=== PATIENT | female | born 1960 | race Caucasian/White ===

== ENCOUNTER 2017-05-27 12:19 | Inpatient (IN) | payer SELFPAY ==
[2017-05-27 13:03] LABS: ADD MAN DIFF? NO
[2017-05-27 13:09] LABS: BASO # 0.1 x10^3/uL (0.0-0.2); BASO % 0 % (0-3); EOS # 0.2 x10^3/uL (0.0-0.7); EOS % 1 % (0-3); HEMOGLOBIN 15.7 g/dL (12.0-15.5); LYMPH # 2.3 x10^3/uL (1.0-4.8); LYMPH % 16 % (24-48); MEAN CORPUSCULAR HEMOGLOBIN 29 pg (25-35); MEAN CORPUSCULAR HGB CONC 33 g/dL (31-37); MEAN CORPUSCULAR VOLUME 89 fL (79-100); MONO # 0.7 x10^3/uL (0.0-1.1); MONO % 5 % (0-9); NEUT # 11.1 x10^3uL (1.8-7.7); NEUT % 77 % (31-73); PLATELET COUNT 331 x10^3/uL (140-400); RED BLOOD COUNT 5.37 x10^6/uL (3.50-5.40); RED CELL DISTRIBUTION WIDTH 13.8 % (11.5-14.5); WHITE BLOOD COUNT 14.4 x10^3/uL (4.0-11.0)
[2017-05-27] MEDS: ONDANSETRON PF 4 MG/2 ML VIAL. IV ×2 (13:14→19:43)
[2017-05-27] MEDS: IV NORMAL SALINE 1000ML BAG 1,000 ML IV (13:14)
[2017-05-27] MEDS: MORPHINE SULFATE 4 MG/ML DISP.SYRIN. IV/SQ ×2 (13:15→16:00)
[2017-05-27 13:25] LABS: BILIRUBIN,URINE NEGATIVE (NEG); CLARITY,URINE CLOUDY; COLOR,URINE YELLOW; GLUCOSE,URINE NEGATIVE (NEG); NITRITE,URINE NEGATIVE (NEG); PH,URINE 5.5; PROTEIN,URINE NEGATIVE (NEG-TRACE); RBC,URINE 0 /HPF (0-2); UROBILINOGEN,URINE 0.2 mg/dL (0.2 mg/dL)
[2017-05-27 13:26] LABS: TROPONINI < 0.017 ng/mL (0.000-0.055)
[2017-05-27 13:26] LABS: BACTERIA,URINE FEW /HPF (0-FEW); SQUAMOUS EPITHELIAL CELL,UR MOD /LPF; WBC,URINE OCC /HPF (0-4)
[2017-05-27 13:27] LABS: BARBITURATES NEG (NEG); BENZODIAZEPINES NEG (NEG); CANNABINOIDS NEG (NEG); COCAINE NEG (NEG); METHADONE NEG (NEG); OPIATES NEG (NEG); PHENCYCLIDINE NEG (NEG)
[2017-05-27 13:28] LABS: AMPHETAMINE/METHAMPHETAMINE NEG (NEG); ETHANOL, URINE NEG (NEG)
[2017-05-27 13:31] LABS: THYROID STIM HORMONE (TSH) 2.927 uIU/mL (0.358-3.74)
[2017-05-27 13:34] LABS: ANION GAP 8 (6-14); BLOOD UREA NITROGEN 16 mg/dL (7-20); CALCIUM 9.3 mg/dL (8.5-10.1); CARBON DIOXIDE 30 mmol/L (21-32); CHLORIDE 103 mmol/L (98-107); CREATININE 0.8 mg/dL (0.6-1.0); GFR 73.4; GLUCOSE 139 mg/dL (70-99); POTASSIUM 4.1 mmol/L (3.5-5.1); SODIUM 141 mmol/L (136-145)
[2017-05-27 13:40] LABS: ALBUMIN 3.6 g/dL (3.4-5.0); ALK PHOS 109 U/L (46-116); ALT (SGPT) 48 U/L (14-59); AST (SGOT) 34 U/L (15-37); DIRECT BILIRUBIN 0.1 mg/dL (0.0-0.2); LIPASE 336 U/L (73-393); MAGNESIUM 2.3 mg/dL (1.8-2.4); PROTHROMBIN TIME PATIENT 12.1 SEC (11.7-14.0); TOTAL BILIRUBIN 0.4 mg/dL (0.2-1.0)
[2017-05-27 14:01] LABS: NT-PRO BNP 22 pg/mL (0-124)
[2017-05-27 14:01] LABS: CKMB INDEX 0.9 % (0-4); CKMB MASS 0.7 ng/mL (0.0-3.6); CREATINE KINASE 80 U/L (26-192)
[2017-05-27] MEDS ORDERED: CONTRAST GIVEN MC (14:30)
[2017-05-27] MEDS: IOHEXOL 300 MG/ML 100ML VIAL. IV (14:31)
[2017-05-27] MEDS ORDERED: ONDANSETRON PF 4 MG/2 ML VIAL. IV (15:15)
[2017-05-27] MEDS: IV 1/2 NORMAL SALINE 1,000 ML IV (16:45)
[2017-05-27] MEDS: IV DEXTROSE 5 %-0.45 % NACL 1,000 ML IV (17:44)
[2017-05-27 19:49] LABS: TROPONINI < 0.017 ng/mL (0.000-0.055)
[2017-05-27] MEDS: MORPHINE SULFATE 4 MG/ML DISP.SYRIN. IV ×2 (19:49→23:49)
[2017-05-27 21:44] LABS: TROPONINI < 0.017 ng/mL (0.000-0.055)
[2017-05-28 06:42] LABS: ADD MAN DIFF? NO
[2017-05-28 06:46] LABS: BASO # 0.1 x10^3/uL (0.0-0.2); BASO % 1 % (0-3); EOS # 0.3 x10^3/uL (0.0-0.7); EOS % 3 % (0-3); HEMATOCRIT 42.8 % (36.0-47.0); HEMOGLOBIN 13.5 g/dL (12.0-15.5); LYMPH % 27 % (24-48); MEAN CORPUSCULAR HEMOGLOBIN 29 pg (25-35); MEAN CORPUSCULAR HGB CONC 32 g/dL (31-37); MEAN CORPUSCULAR VOLUME 92 fL (79-100); MONO # 0.8 x10^3/uL (0.0-1.1); MONO % 7 % (0-9); NEUT % 63 % (31-73); PLATELET COUNT 267 x10^3/uL (140-400); RED BLOOD COUNT 4.67 x10^6/uL (3.50-5.40); RED CELL DISTRIBUTION WIDTH 14.5 % (11.5-14.5); WHITE BLOOD COUNT 11.2 x10^3/uL (4.0-11.0)
[2017-05-28 07:23] LABS: ALBUMIN 2.8 g/dL (3.4-5.0); ALBUMIN/GLOBULIN RATIO 0.7 (1.0-1.7); ALK PHOS 81 U/L (46-116); ALT (SGPT) 41 U/L (14-59); ANION GAP 4 (6-14); AST (SGOT) 36 U/L (15-37); BLOOD UREA NITROGEN 11 mg/dL (7-20); BUN/CREATININE RATIO 16 (6-20); CALCIUM 8.9 mg/dL (8.5-10.1); CARBON DIOXIDE 33 mmol/L (21-32); CHLORIDE 104 mmol/L (98-107); CREATININE 0.7 mg/dL (0.6-1.0); GFR 85.6; GLUCOSE 130 mg/dL (70-99); POTASSIUM 4.1 mmol/L (3.5-5.1); SODIUM 141 mmol/L (136-145); TOTAL BILIRUBIN 0.4 mg/dL (0.2-1.0); TOTAL PROTEIN 6.6 g/dL (6.4-8.2)
[2017-05-28] MEDS: ONDANSETRON PF 4 MG/2 ML VIAL. IV (08:54)
[2017-05-28] MEDS: MORPHINE SULFATE 4 MG/ML DISP.SYRIN. IV ×2 (08:55→15:12)
[2017-05-28] MEDS: FAMOTIDINE 20 MG/2 ML VIAL IVP (13:30)
[2017-05-28] MEDS ORDERED: hydrALAZINE 20 MG/ML VIAL. IVP (15:45)
[2017-05-28] MEDS ORDERED: ONDANSETRON PF 4 MG/2 ML VIAL. IV (15:45)
[2017-05-28] MEDS ORDERED: ACETAMINOPHEN 325 MG TABLET. PO (15:45)
[2017-05-28] MEDS: CALCIUM CARBONATE 500 MG TAB.CHEW PO ×2 (17:06→20:19)
[2017-05-28] MEDS: FAMOTIDINE 20 MG TABLET. PO (20:19)
[2017-05-28] MEDS: MORPHINE SULFATE 2 MG/ML DISP.SYRIN. IV (20:20)
[2017-05-29 04:09] LABS: ADD MAN DIFF? NO
[2017-05-29 04:16] LABS: BASO # 0.1 x10^3/uL (0.0-0.2); BASO % 1 % (0-3); EOS # 0.3 x10^3/uL (0.0-0.7); EOS % 3 % (0-3); HEMATOCRIT 42.9 % (36.0-47.0); HEMOGLOBIN 14.5 g/dL (12.0-15.5); LYMPH # 2.8 x10^3/uL (1.0-4.8); LYMPH % 28 % (24-48); MEAN CORPUSCULAR HEMOGLOBIN 30 pg (25-35); MEAN CORPUSCULAR HGB CONC 34 g/dL (31-37); MEAN CORPUSCULAR VOLUME 89 fL (79-100); MONO # 0.7 x10^3/uL (0.0-1.1); MONO % 7 % (0-9); NEUT # 6.3 x10^3uL (1.8-7.7); NEUT % 62 % (31-73); PLATELET COUNT 282 x10^3/uL (140-400); RED BLOOD COUNT 4.84 x10^6/uL (3.50-5.40); RED CELL DISTRIBUTION WIDTH 13.7 % (11.5-14.5); WHITE BLOOD COUNT 10.1 x10^3/uL (4.0-11.0)
[2017-05-29 04:31] LABS: ANION GAP 5 (6-14); BLOOD UREA NITROGEN 11 mg/dL (7-20); CALCIUM 9.5 mg/dL (8.5-10.1); CARBON DIOXIDE 33 mmol/L (21-32); CHLORIDE 100 mmol/L (98-107); CREATININE 0.8 mg/dL (0.6-1.0); GFR 73.4; GLUCOSE 133 mg/dL (70-99); POTASSIUM 3.8 mmol/L (3.5-5.1); SODIUM 138 mmol/L (136-145)
[2017-05-29] MEDS: LEVOTHYROXINE 25 MCG TABLET. PO ×2 (07:00→12:19)
[2017-05-29] MEDS: fentaNYL PF VIAL 100 MCG/2 ML VIAL IV ×4 (07:40→20:54)
[2017-05-29] MEDS: NORMAL SALINE IV (10:25)
[2017-05-29] MEDS: SINCALIDE IV (10:25)
[2017-05-29] MEDS: busPIRone 10 MG TABLET. PO (12:19)
[2017-05-29] MEDS: FAMOTIDINE 20 MG TABLET. PO ×2 (12:19→20:54)
[2017-05-29] MEDS: LISINOPRIL 20 MG TABLET PO (12:19)
[2017-05-29] MEDS: DOCUSATE SODIUM 100 MG CAPSULE. PO ×2 (12:19→20:54)
[2017-05-29] MEDS: ATORVASTATIN CALCIUM 10 MG TABLET. PO (21:00)
[2017-05-30] MEDS: fentaNYL PF VIAL 100 MCG/2 ML VIAL IV ×4 (05:40→20:58)
[2017-05-30] MEDS: LEVOTHYROXINE 25 MCG TABLET. PO (05:40)
[2017-05-30] MEDS: FAMOTIDINE 20 MG TABLET. PO ×2 (09:02→20:43)
[2017-05-30] MEDS: DOCUSATE SODIUM 100 MG CAPSULE. PO ×2 (09:02→20:43)
[2017-05-30] MEDS: busPIRone 10 MG TABLET. PO (09:02)
[2017-05-30] MEDS: LISINOPRIL 20 MG TABLET PO (09:03)
[2017-05-30] MEDS: LIDO:MAALOX:DONNATAL 1:1:1 15 ML SINGLE DOSE SWSW (18:31)
[2017-05-30] MEDS: ATORVASTATIN CALCIUM 10 MG TABLET. PO (20:43)
[2017-05-31] MEDS: LEVOTHYROXINE 25 MCG TABLET. PO (06:17)
[2017-05-31] MEDS: fentaNYL PF VIAL 100 MCG/2 ML VIAL IV (06:18)
[2017-05-31] MEDS: busPIRone 10 MG TABLET. PO (08:58)
[2017-05-31] MEDS: DOCUSATE SODIUM 100 MG CAPSULE. PO ×3 (08:59→20:33)
[2017-05-31] MEDS: FAMOTIDINE 20 MG TABLET. PO ×2 (08:59→20:33)
[2017-05-31] MEDS: LISINOPRIL 20 MG TABLET PO (09:00)
[2017-05-31] MEDS: CALCIUM CARBONATE 500 MG TAB.CHEW PO ×3 (09:00→18:14)
[2017-05-31] MEDS: oxyCODONE/APAP 5/325 1 TAB TABLET PO (12:23)
[2017-05-31] MEDS ORDERED: POLYETHYLENE GLYCOL 3350 17 GM PACKET. PO (12:30)
[2017-05-31] MEDS: POLYETHYLENE GLYCOL 3350 17 GM PACKET. PO (13:25)
[2017-05-31] MEDS: LIDO:MAALOX:DONNATAL 1:1:1 15 ML SINGLE DOSE SWSW (14:24)
[2017-05-31] MEDS: ATORVASTATIN CALCIUM 10 MG TABLET. PO (20:32)
[2017-06-01] MEDS: LEVOTHYROXINE 25 MCG TABLET. PO (06:32)
[2017-06-01] MEDS ORDERED: ceFAZolin 2GM PREMIX 2 GM/50 ML BAG IV (07:00)
[2017-06-01] MEDS: IV RINGERS,LACTATED 1000ML 1,000 ML IV ×3 (08:52→19:00)
[2017-06-01] MEDS: DOCUSATE SODIUM 100 MG CAPSULE. PO ×2 (09:00→20:49)
[2017-06-01] MEDS: LISINOPRIL 20 MG TABLET PO (09:00)
[2017-06-01] MEDS: busPIRone 10 MG TABLET. PO (09:00)
[2017-06-01] MEDS ORDERED: PROPOFOL 20 ML IV ×2 (09:54→15:00)
[2017-06-01] MEDS ORDERED: LIDOCAINE 2% PF Vial for OR 5 ML VIAL. ×2 (09:54→15:00)
[2017-06-01] MEDS ORDERED: PANTOPRAZOLE 40 MG TABLET.DR. PO (11:00)
[2017-06-01] MEDS: fentaNYL PF VIAL 100 MCG/2 ML VIAL IV ×3 (11:19→18:09)
[2017-06-01] MEDS ORDERED: ONDANSETRON PF 4 MG/2 ML VIAL. IV (11:30)
[2017-06-01] MEDS ORDERED: fentaNYL PF VIAL 100 MCG/2 ML VIAL IV (11:30)
[2017-06-01] MEDS ORDERED: LIDOCAINE 1% PF 2 ML VIAL. ID (11:30)
[2017-06-01] MEDS: BISACODYL 10 MG SUPP.RECT. PR (12:26)
[2017-06-01] MEDS ORDERED: NEOSTIGMINE METHYLSULFATE 5 MG/5 ML SYRINGE. (14:59)
[2017-06-01] MEDS ORDERED: ROCURONIUM 50 MG/5 ML VIAL. (14:59)
[2017-06-01] MEDS ORDERED: GLYCOPYRROLATE 1 MG/5 ML VIAL. (14:59)
[2017-06-01] MEDS ORDERED: MIDAZOLAM HCL/PF 2 MG/2 ML VIAL. (14:59)
[2017-06-01] MEDS ORDERED: fentaNYL PF VIAL 100 MCG/2 ML VIAL (14:59)
[2017-06-01] MEDS ORDERED: DEXAMETHASONE SOD PHOS 20 MG/5 ML VIAL. (15:00)
[2017-06-01] MEDS ORDERED: ONDANSETRON PF 4 MG/2 ML VIAL. (15:00)
[2017-06-01] MEDS ORDERED: KETOROLAC 30 MG/ML INJ FOR OR. INJ (15:00)
[2017-06-01] MEDS: IOHEXOL 300 MG/ML 100ML VIAL. (16:18)
[2017-06-01] MEDS: BUPIVAC MPF-EPI 0.5%-1:200000 30 ML VIAL. INJ (16:18)
[2017-06-01] MEDS: PANTOPRAZOLE 40 MG TABLET.DR. PO ×2 (16:30→20:49)
[2017-06-01] MEDS ORDERED: fentaNYL PF VIAL 250 MCG/5 ML VIAL (16:57)
[2017-06-01] MEDS: SURGICEL HEMOSTAT 4X8 EACH. (17:03)
[2017-06-01] MEDS: PROCHLORPERAZINE 10 MG/2 ML VIAL. IV ×2 (17:45→18:29)
[2017-06-01] MEDS: MORPHINE SULFATE 2 MG/ML DISP.SYRIN. IV ×2 (18:31→18:41)
[2017-06-01] MEDS: ATORVASTATIN CALCIUM 10 MG TABLET. PO (20:49)
[2017-06-02] MEDS: IV RINGERS,LACTATED 1000ML 1,000 ML IV (05:00)
[2017-06-02] MEDS: LEVOTHYROXINE 25 MCG TABLET. PO (05:47)
[2017-06-02] MEDS: busPIRone 10 MG TABLET. PO (09:04)
[2017-06-02] MEDS: LISINOPRIL 20 MG TABLET PO (09:04)
[2017-06-02] MEDS: DOCUSATE SODIUM 100 MG CAPSULE. PO ×2 (09:04→20:32)
[2017-06-02] MEDS: PANTOPRAZOLE 40 MG TABLET.DR. PO ×2 (09:04→20:34)
[2017-06-02] MEDS: oxyCODONE/APAP 5/325 1 TAB TABLET PO ×2 (09:09→16:53)
[2017-06-02] MEDS: ATORVASTATIN CALCIUM 10 MG TABLET. PO (20:33)
[2017-06-02] MEDS: traMADol 50 MG TABLET PO (20:33)
[2017-06-02] MEDS: MAGNESIUM HYDROXIDE 2,400 MG/30 ML ORAL.SUSP. PO (20:34)
[2017-06-03] MEDS: LEVOTHYROXINE 25 MCG TABLET. PO (06:12)
[2017-06-03] MEDS: traMADol 50 MG TABLET PO (06:14)
[2017-06-03] MEDS: LISINOPRIL 20 MG TABLET PO (08:45)
[2017-06-03] MEDS: PANTOPRAZOLE 40 MG TABLET.DR. PO (08:46)
[2017-06-03] MEDS: DOCUSATE SODIUM 100 MG CAPSULE. PO (08:46)
[2017-06-03] MEDS: busPIRone 10 MG TABLET. PO (08:46)
[2017-06-03] MEDS: oxyCODONE/APAP 5/325 1 TAB TABLET PO (10:44)
[2017-06-03] MEDS: DICYCLOMINE HCL 10 MG CAPSULE PO (10:44)
[2017-06-03] MEDS: BISACODYL 5 MG TABLET.DR. PO (11:53)
[2017-06-03] MEDS: MAGNESIUM HYDROXIDE 2,400 MG/30 ML ORAL.SUSP. PO (11:53)
[2017-06-03] MEDS: POLYETHYLENE GLYCOL 3350 17 GM PACKET. PO (11:53)
== END 2017-06-03 15:44 | disposition home or self-care (01) | DRG 418 ==
LOC: 5 NORTH 06-01 21:22 → ER 12:19 → ED HOLD 14:35 → 5 NORTH 17:29
PROC: 0DB68ZX Excision of Stomach, Via Natural or Artificial Opening Endoscopic, Diagnostic (ICD-10-PCS; 2017-06-01 09:30)
PROC: 0FT44ZZ Resection of Gallbladder, Percutaneous Endoscopic Approach (ICD-10-PCS; principal; 2017-06-01 09:58)
PROC: BF131ZZ Fluoroscopy of Gallbladder and Bile Ducts using Low Osmolar Contrast (ICD-10-PCS; 2017-06-01 09:58)
DX: K82.9 Disease of gallbladder, unspecified (principal); K22.10 Ulcer of esophagus without bleeding; E66.01 Morbid (severe) obesity due to excess calories; K21.0 Gastro-esophageal reflux disease with esophagitis; K57.90 Diverticulosis of intestine, part unspecified, without perforation or abscess without bleeding; Z68.36 Body mass index [BMI] 36.0-36.9, adult; I10 Essential (primary) hypertension; E03.9 Hypothyroidism, unspecified; R16.1 Splenomegaly, not elsewhere classified; E78.5 Hyperlipidemia, unspecified; G89.29 Other chronic pain; K29.70 Gastritis, unspecified, without bleeding; K59.09 Other constipation; Z82.49 Family history of ischemic heart disease and other diseases of the circulatory system; Z83.71 Family history of colonic polyps; Z96.659 Presence of unspecified artificial knee joint; F32.9 Major depressive disorder, single episode, unspecified; F41.9 Anxiety disorder, unspecified
CPT/HCPCS: 36415; 74177; 74300; 76700; 78226; 80048; 80053; 80076; 80307; 81001; 82553; 83690; 83735; 83880; 84443; 84484; 85025; 85610; 87086; 88304; 88305; 88342; 93005; 96361; 96374; 96375; 96376; 99285; 99285-25; A9537; J0690; J0780; J1100; J1885; J2250; J2270; J2405; J2704; J2710; J2805; J3010; J3490; J7030; J7120; Q9967; S0028

== ENCOUNTER 2017-06-16 16:13 | Emergency (ER) | payer SELFPAY ==
[2017-06-16] MEDS: IV NORMAL SALINE 1000ML BAG 1,000 ML IV (17:25)
[2017-06-16 17:30] LABS: ADD MAN DIFF? NO
[2017-06-16 17:33] LABS: BASO # 0.1 x10^3/uL (0.0-0.2); BASO % 1 % (0-3); EOS # 0.2 x10^3/uL (0.0-0.7); EOS % 1 % (0-3); HEMOGLOBIN 14.9 g/dL (12.0-15.5); LYMPH # 2.9 x10^3/uL (1.0-4.8); LYMPH % 23 % (24-48); MEAN CORPUSCULAR HEMOGLOBIN 30 pg (25-35); MEAN CORPUSCULAR HGB CONC 33 g/dL (31-37); MEAN CORPUSCULAR VOLUME 90 fL (79-100); MONO # 0.6 x10^3/uL (0.0-1.1); MONO % 5 % (0-9); NEUT # 8.8 x10^3uL (1.8-7.7); NEUT % 70 % (31-73); PLATELET COUNT 336 x10^3/uL (140-400); RED BLOOD COUNT 5.03 x10^6/uL (3.50-5.40); RED CELL DISTRIBUTION WIDTH 14.4 % (11.5-14.5); WHITE BLOOD COUNT 12.6 x10^3/uL (4.0-11.0)
[2017-06-16 17:45] LABS: ANION GAP 11 (6-14); BLOOD UREA NITROGEN 14 mg/dL (7-20); CALCIUM 9.4 mg/dL (8.5-10.1); CARBON DIOXIDE 28 mmol/L (21-32); CHLORIDE 103 mmol/L (98-107); CREATININE 0.7 mg/dL (0.6-1.0); GFR 85.6; GLUCOSE 140 mg/dL (70-99); POTASSIUM 3.8 mmol/L (3.5-5.1); SODIUM 142 mmol/L (136-145)
[2017-06-16 17:46] LABS: NEG OBC SER NEG; POS OBC SER POS; PREG TEST PT QUAL NEGATIVE (NEG)
[2017-06-16 17:50] LABS: ALBUMIN 3.5 g/dL (3.4-5.0); ALK PHOS 99 U/L (46-116); ALT (SGPT) 38 U/L (14-59); AST (SGOT) 31 U/L (15-37); DIRECT BILIRUBIN 0.1 mg/dL (0.0-0.2); LIPASE 203 U/L (73-393); TOTAL BILIRUBIN 0.3 mg/dL (0.2-1.0)
== END 2017-06-16 18:28 | disposition home or self-care (01) ==
LOC: ER 16:13
DX: G89.18 Other acute postprocedural pain (principal); R10.9 Unspecified abdominal pain; R11.0 Nausea; E78.00 Pure hypercholesterolemia, unspecified; E03.9 Hypothyroidism, unspecified; I10 Essential (primary) hypertension; Z90.49 Acquired absence of other specified parts of digestive tract; Z96.659 Presence of unspecified artificial knee joint
CPT/HCPCS: 36415; 80048; 80076; 83690; 84703; 85025; 96360; 99284-25; J7030

== ENCOUNTER 2017-07-01 19:38 | Emergency (ER) | payer SELFPAY ==
[2017-07-01] MEDS: IV NORMAL SALINE 1000ML BAG 1,000 ML IV (20:15)
[2017-07-01] MEDS: ONDANSETRON PF 4 MG/2 ML VIAL. IV (20:38)
[2017-07-01 20:45] LABS: ADD MAN DIFF? NO
[2017-07-01 20:50] LABS: BILIRUBIN,URINE SMALL (NEG); CLARITY,URINE CLOUDY; COLOR,URINE YELLOW; GLUCOSE,URINE NEGATIVE (NEG); NITRITE,URINE NEGATIVE (NEG); PROTEIN,URINE NEGATIVE (NEG-TRACE)
[2017-07-01 20:52] LABS: BASO # 0.1 x10^3/uL (0.0-0.2); BASO % 1 % (0-3); EOS # 0.2 x10^3/uL (0.0-0.7); EOS % 2 % (0-3); LYMPH % 27 % (24-48); MEAN CORPUSCULAR HEMOGLOBIN 30 pg (25-35); MEAN CORPUSCULAR HGB CONC 34 g/dL (31-37); MEAN CORPUSCULAR VOLUME 89 fL (79-100); MONO # 0.6 x10^3/uL (0.0-1.1); MONO % 6 % (0-9); NEUT # 7.1 x10^3uL (1.8-7.7); NEUT % 65 % (31-73); PLATELET COUNT 272 x10^3/uL (140-400); RED BLOOD COUNT 4.62 x10^6/uL (3.50-5.40)
[2017-07-01 20:58] LABS: BACTERIA,URINE 0 /HPF (0-FEW); RBC,URINE 0 /HPF (0-2); SQUAMOUS EPITHELIAL CELL,UR MOD /LPF
[2017-07-01 21:14] LABS: ANION GAP 7 (6-14); BLOOD UREA NITROGEN 18 mg/dL (7-20); BUN/CREATININE RATIO 20 (6-20); CALCIUM 9.3 mg/dL (8.5-10.1); CARBON DIOXIDE 32 mmol/L (21-32); CHLORIDE 105 mmol/L (98-107); CREATININE 0.9 mg/dL (0.6-1.0); GFR 64.1; GLUCOSE 148 mg/dL (70-99); POTASSIUM 3.2 mmol/L (3.5-5.1); SODIUM 144 mmol/L (136-145)
[2017-07-01 21:19] LABS: ALBUMIN 3.1 g/dL (3.4-5.0); ALBUMIN/GLOBULIN RATIO 0.7 (1.0-1.7); ALK PHOS 109 U/L (46-116); ALT (SGPT) 34 U/L (14-59); AST (SGOT) 22 U/L (15-37); LIPASE 320 U/L (73-393); TOTAL BILIRUBIN 0.2 mg/dL (0.2-1.0); TOTAL PROTEIN 7.4 g/dL (6.4-8.2)
[2017-07-01 21:36] LABS: TROPONINI < 0.017 ng/mL (0.000-0.055)
[2017-07-01] MEDS: POTASSIUM CHLORIDE 20 MEQ TABLET.ER. PO (21:41)
[2017-07-01] MEDS ORDERED: IOHEXOL 300 MG/ML 100ML VIAL. IV (22:00)
[2017-07-01] MEDS ORDERED: CONTRAST GIVEN MC (22:00)
== END 2017-07-01 23:23 | disposition home or self-care (01) ==
LOC: ER 19:38
DX: T81.4XXA Infection following a procedure, initial encounter (principal); E87.6 Hypokalemia; E78.00 Pure hypercholesterolemia, unspecified; I10 Essential (primary) hypertension; E03.9 Hypothyroidism, unspecified; E66.9 Obesity, unspecified; Z90.49 Acquired absence of other specified parts of digestive tract; Z96.659 Presence of unspecified artificial knee joint; Z68.41 Body mass index [BMI] 40.0-44.9, adult; Y83.8 Other surgical procedures as the cause of abnormal reaction of the patient, or of later complication, without mention of misadventure at the time of the procedure; Y92.89 Other specified places as the place of occurrence of the external cause
CPT/HCPCS: 36415; 74177; 80053; 81001; 83690; 84484; 85025; 87071; 87075; 87205; 93005; 96361; 96374; 99285-25; J2405; J7030

== ENCOUNTER 2018-04-14 07:48 | Outpatient (CLI) | payer OTHER ==
[~2018-04-14] VITALS: Ht 170.2 cm; Wt 105.2 kg
[2018-04-14] VITALS (12 sets, daily range): BP systolic 91–119; BP diastolic 52–80
[~2018-04-14 07:48] MED LIST: AMOX1TAB58 PO; BUSP10TA PO; CEPH-263 PO; DOCU-109 PO; LEVO25TA55 PO; LISI-334 PO; LOVA20TA2 PO; ONDA4TAB10 SL; OXYC1TAB7 PO; Pantoprazole PO; TRAM-48 PO
[2018-04-14] MEDS ORDERED: METF500T9 PO (08:07)
[2018-04-14] MEDS ORDERED: ERGO500027 PO (08:07)
[2018-04-14] MEDS ORDERED: LISI1TAB7 PO (08:07)
[2018-04-14] MEDS ORDERED: CYCL10TA2 PO (08:09)
[2018-04-14] MEDS ORDERED: BUSP10TA PO (08:09)
[2018-04-14] MEDS ORDERED: SIMV20TA3 PO (08:10)
[2018-04-14 08:42] LABS: HEMOGLOBIN 14.5 g/dL (12.0-15.5); RED BLOOD COUNT 4.71 x10^6/uL (3.50-5.40); RED CELL DISTRIBUTION WIDTH 14.6 % (11.5-14.5); WHITE BLOOD COUNT 7.8 x10^3/uL (4.0-11.0)
[2018-04-14 08:49] LABS: CALCIUM 8.6 mg/dL (8.5-10.1); CREATININE 0.8 mg/dL (0.6-1.0); GFR 73.2; POTASSIUM 4.3 mmol/L (3.5-5.1)
[2018-04-14] MEDS ORDERED: IODIXANOL 320 MG/ML 100 ML VIAL. ONE (08:58)
[2018-04-14] MEDS ORDERED: LIDOCAINE 1% PF 2 ML VIAL. ONE (08:58)
[2018-04-14 09:02] LABS: PROTHROMBIN TIME PATIENT 12.3 SEC (11.7-14.0)
[2018-04-14] MEDS ORDERED: MIDAZOLAM HCL/PF 5 MG/5 ML VIAL. ONE (10:35)
[2018-04-14] MEDS ORDERED: fentaNYL PF VIAL 100 MCG/2 ML VIAL ONE (10:35)
[2018-04-14] MEDS ORDERED: VERAPAMIL 5 MG/2 ML VIAL. ONE (10:36)
[2018-04-14] MEDS ORDERED: HEPARIN for IV BOLUS 10,000 UNIT/10 ML VIAL. ONE (10:36)
[2018-04-14] MEDS ORDERED: NITROGLYCERIN 200 MCG/2 ML SYRINGE FOR CATH/VASC LAB. ONE (10:36)
[2018-04-14] MEDS ORDERED: fentaNYL PF VIAL 100 MCG/2 ML VIAL IV ONE (11:00)
[2018-04-14] MEDS ORDERED: HEPARIN for IV BOLUS 10,000 UNIT/10 ML VIAL. IART ONE (11:00)
[2018-04-14] MEDS ORDERED: NITROGLYCERIN 200 MCG/2 ML SYRINGE FOR CATH/VASC LAB. IART ONE (11:00)
[2018-04-14] MEDS ORDERED: VERAPAMIL 5 MG/2 ML VIAL. IART ONE (11:00)
[2018-04-14] MEDS ORDERED: LIDOCAINE 1% PF 2 ML VIAL. INJ ONE (11:00)
[2018-04-14] MEDS ORDERED: IODIXANOL 320 MG/ML 100 ML VIAL. IART ONE (11:00)
[2018-04-14] MEDS ORDERED: CONTRAST GIVEN. MC PRN (11:00)
[2018-04-14] MEDS ORDERED: MIDAZOLAM HCL/PF 5 MG/5 ML VIAL. IV ONE (11:00)
[2018-04-14] MEDS ORDERED: IV 1/2 NORMAL SALINE 1,000 ML IV SCH (11:06)
--- NOTE | 2018-04-14 11:06 | PDOC ---
MODERATE SEDATION ASSESSMENT RISKS/ALTERNATIVES Risks/Alternatives Risks and alternatives of this type of sedation and procedure discussed with: RISK/ALTERNATIVES: Patient H & P ON CHART H & P H & P on chart and reviewed for co-morbid conditions and appropriate labs. H&P ON CHART: Yes STATUS PREG STATUS ASSESSED: N/A MEDS/ALLERGIES REVIEWED Meds/Allergies Reviewed Medications and Allergies including time and route of recently administered narcotics and sedatives. MEDS/ALLERGIES REVIEWED: Yes ASA RATING ASA RATING: II AIRWAY ASSESSMENT Airway Assessment Airway patency, oral function limitations, presence of caps, crowns, dentures, partials, and ability to extend neck assessed. AIRWAY ASSESSMENT: Yes MALLAMPATI SCORE MALLAMPATI SCORE: II PRE-SEDATION ASSESSMENT PRE-SEDATION ASSESSMENT: Yes BERNICE GARDINER MD Apr 14, 2018 11:06
[2018-04-14] MEDS ORDERED: NITROGLYCERIN SUBLINGUAL 0.4 MG BOTTLE OF 25. SL PRN (11:15)
--- NOTE | 2018-04-14 11:32 | CARD ---
MR#: [id number] Date of Study: 04/14/2018 Ordering Physician: BERNICE GARDINER, Referring Physician: BERNICE GARDINER Tech: Melonie Martinez RTR APPROVED REPORT Technologist: Melonie Martinez RTR Nurse: Aliya Jarrell R.N. Procedure(s) performed: Left heart catheterization, selective coronary angiography and left ventricul ography via right transradial approach Moderate Sedation time: 28 min INDICATION The indication(s) include : unstable angina . PROCEDURE NARRATIVE After explaining the risks, benefits and alternative options, informed consent was obtained from alexi ent. Patient was brought to the cardiac [facility] and right wrist was prepped and draped in the usual fashion after confirming a positive modified Solomon's test. Arterial access was obtained in the righ t radial artery and a 6 [place] sheath was inserted. 6 [place] Yayo catheter was used to perform darlene ective angiography of the left coronary artery and also left ventriculography. 6 [place] JR4 catheter was used to perform selective angiography of the right coronary artery. Patient tolerated the proced ure well. Hemostasis was achieved using TR band. There were no immediate complications. The follow ing findings were noted. FINDINGS 1. Hemodynamics: Left ventricular end-diastolic pressure of 13 mmHg. No pullback gradient across th e aortic valve. 2. Left ventriculography: Normal left ventricle systolic function with ejection fraction estimated at 60%. No significant mitral regurgitation seen. 3. Coronary angiography: a. The left main coronary artery arose from the left sinus of Valsalva, gave rise to the left anteri or descending and left circumflex arteries and did not show any significant stenosis. b. The left anterior descending artery did not show any significant stenosis. c. The left circumflex artery did not show any significant stenosis. d. The right coronary artery was a large and dominant vessel arising from the right sinus of Valsalv a that did not show any significant stenosis. Conclusion 1. No significant coronary disease 2. Normal left ventricular systolic function with ejection fraction estimated at 60% Signed by : Bernice Gardiner, Electronically Approved : 04/14/2018 11:30:08
--- NOTE | 2018-04-14 13:33 | CARD ---
MR#: [id number] Date of Study: 04/14/2018 Ordering Physician: BERNICE JOHNSON, Referring Physician: BERNICE JOHNSON, Tech: Martha Brown APPROVED REPORT EXAM: Two-dimensional and M-mode echocardiogram with Doppler and color Doppler. Other Information Quality : AverageHR: 72bpm INDICATION Dyspnea RISK FACTORS Hypertension Hyperlipidemia Diabetes 2D DIMENSIONS Left Atrium(2D)3.6 (1.6-4.0cm)IVSd1.8 (0.7-1.1cm) Aortic Root(2D)3.2 (2.0-3.7cm)LVDd3.4 (3.9-5.9cm) LVOT Diameter2.2 (1.8-2.4cm)PWd1.3 (0.7-1.1cm) LVDs2.4 (2.5-4.0cm)FS (%) 48.4 % SV83.7 mlLVEF(%)79.8 (>50%) Aortic Valve AoV Peak Al.122.3cm/sAoV VTI22.7cm AO Peak GR.6.0mmHgLVOT VTI 17.77cm AO Mean GR.4mmHg Mitral Valve MV E Uqkkkjty01.9cm/sMV DECEL INIT853jp MV A Fowdnlnm90.2cm/sE/A Ratio0.8 TDI Lateral E' P. V6.37cm/sMedial E' P. V8.24cm/s E/Lateral E'9.7E/Medial E'7.5 Tricuspid Valve TR P. Pjrecsms464ea/sRAP EDXBQDYI4nyYw TR Peak Gr.38gsWbCEDD40coNp Pulmonary Vein S1 Ozsslhde51.9cm/sS2 Hjsebvuu82.49cm/s D2 Shayotoj54.5cm/s LEFT VENTRICLE The left ventricle is normal size. There is moderate concentric left ventricular hypertrophy. The lef t ventricular systolic function is normal. The Ejection Fraction is 55-60%. There is normal LV segmen ana wall motion. Transmitral Doppler flow pattern is Grade I-abnormal relaxation pattern. RIGHT VENTRICLE The right ventricle is normal size. There is normal right ventricular wall thickness. The right ventr icular systolic function is normal. ATRIA The left atrium size is normal. The right atrium size is normal. The interatrial septum is intact wit h no evidence for an atrial septal defect or patent foramen ovale as noted on 2-D or Doppler imaging. AORTIC VALVE The aortic valve is thickened but opens well. Doppler and Color Flow revealed no significant aortic r egurgitation. There is no significant aortic valvular stenosis. MITRAL VALVE The mitral valve is normal in structure and function. There is no evidence of mitral valve prolapse. There is no mitral valve stenosis. Doppler and Color-flow revealed trace mitral regurgitation. TRICUSPID VALVE The tricuspid valve is not well visualized. Doppler and Color Flow revealed no tricuspid valve regurg itation noted. There is no tricuspid valve stenosis. PULMONIC VALVE The pulmonic valve is not well visualized. Doppler and Color Flow revealed no pulmonic valvular regur gitation. GREAT VESSELS The aortic root is normal in size. Normal pulmonary venous flow (Doppler). The IVC is normal in size and collapses >50% with inspiration. PERICARDIAL EFFUSION There is no evidence of significant pericardial effusion. Critical Notification Critical Value: No <Conclusion> The left ventricular systolic function is normal. The Ejection Fraction is 55-60%. There is normal LV segmental wall motion. Transmitral Doppler flow pattern is Grade I-abnormal relaxation pattern. Doppler and Color-flow revealed trace mitral regurgitation. There is no evidence of significant pericardial effusion. Signed by : Bernice Johnson, Electronically Approved : 04/14/2018 13:32:21
--- NOTE | 2018-04-14 14:13 | NUR ---
Discharge Note: ALEJANDRA MORATAYA Discharge instructions and discharge home medications reviewed with Patient and a copy given. All questions have been answered and understanding verbalized. The following instructions and handouts were given: education was given to patient regarding moderate sedation and radial site care. Pt was also instructed to continue home medications as directed. Pt verbalized understanding. Discontinued lines and drains: peripheral iv was discontinued with no complications. Catheter tip was intact. Patient discharged to home with self care via wheelchair. Pt was accompanied by sister.
== END 2018-04-14 14:14 | disposition home or self-care (01) ==
LOC: ECHO 07:48
PROVIDERS: ATTEND Internal Medicine Cardiovascular Disease
DX: I20.0 Unstable angina (principal); I34.0 Nonrheumatic mitral (valve) insufficiency; Z79.899 Other long term (current) drug therapy
CPT/HCPCS: 36415; 80048; 85027; 85610; 93306; 93458; 99152; 99153; C1769; C1892; J1644; J2250; J3010; J3490; Q9967

== ENCOUNTER → 2018-04-28 | Outpatient (CLI) | payer MEDICAID ==
[2018-04-14 13:25] VITALS: BP 96/52
[~2018-04-28] MED LIST changes: +CYCL10TA2 PO; +ERGO500027 PO; +LISI1TAB7 PO; +METF500T9 PO; +SIMV20TA3 PO
--- NOTE | 2018-04-28 12:13 | KCIC ---
Chest, 2 views, 04/28/2018: HISTORY: Cough, wheezing The heart size and pulmonary vascularity are normal. No pulmonary infiltrate is seen. There is no evidence of pleural fluid. Moderate hypertrophic spurring with bony bridging is evident in the thoracic spine. IMPRESSION: No acute cardiopulmonary abnormality is detected. Electronically signed by: Sal Grove MD (04/28/2018 12:08 PM) [facility]
== END | disposition home or self-care (01) ==
LOC: KCIC 08:29
PROVIDERS: ATTEND Family Medicine
DX: R05 Cough (principal); R06.2 Wheezing
CPT/HCPCS: 71046

== ENCOUNTER 2018-09-08 20:26 | Emergency (ER) | payer MEDICAID, OTHER ==
[~2018-09-08] VITALS: Ht 170.2 cm; Wt 109.8 kg
[2018-09-08 20:48] LABS: BILIRUBIN,URINE NEGATIVE (NEG); CLARITY,URINE CLEAR; COLOR,URINE YELLOW; NITRITE,URINE NEGATIVE (NEG); PH,URINE 6.5; PROTEIN,URINE NEGATIVE (NEG-TRACE)
[2018-09-08 21:06] LABS: BACTERIA,URINE MODERATE /HPF (0-FEW); RBC,URINE OCC /HPF (0-2); SQUAMOUS EPITHELIAL CELL,UR MANY /LPF; WBC,URINE >40 /HPF (0-4)
[2018-09-08] MEDS ORDERED: PHENAZOPYRIDINE 200 MG TABLET. PO ONE (21:30)
[2018-09-08] MEDS ORDERED: CEPHALEXIN 250 MG CAPSULE. PO ONE (21:30)
[2018-09-08] MEDS ORDERED: CEPH-264 PO (21:31)
[2018-09-08] MEDS ORDERED: PHEN-318 PO (21:31)
--- NOTE | 2018-09-08 21:32 | PHYS DOC ---
Past Medical History Past Medical History: High Cholesterol, Hypertension, Hypothyroid Additional Past Medical Histor: gallstones Past Surgical History: Appendectomy, Cholecystectomy, Knee Replacement Additional Past Surgical Histo: D&C's Alcohol Use: None Drug Use: None Adult General Chief Complaint Chief Complaint: PAIN ON URINATION [facility] Patient is a 58 year old [f__sex] who presents with [] Review of Systems Review of Systems Constitutional: Denies fever or chills [] Eyes: Denies change in visual acuity, redness, or eye pain [] HENT: Denies nasal congestion or sore throat [] Respiratory: Denies cough or shortness of breath [] Cardiovascular: No additional information not addressed in HPI [] GI: Denies abdominal pain, nausea, vomiting, bloody stools or diarrhea [] : Denies dysuria or hematuria [] Musculoskeletal: Denies back pain or joint pain [] Integument: Denies rash or skin lesions [] Neurologic: Denies headache, focal weakness or sensory changes [] Endocrine: Denies polyuria or polydipsia [] All other systems were reviewed and found to be within normal limits, except as documented in this note. Allergies Allergies Allergies Coded Allergies Type Severity Reaction Last Updated Verified No Known Drug Allergies 06/01/17 No Physical Exam Physical Exam Constitutional: Well developed, well nourished, no acute distress, non-toxic appearance. [] HENT: Normocephalic, atraumatic, bilateral external ears normal, oropharynx moist, no oral exudates, nose normal. [] Eyes: PERRLA, EOMI, conjunctiva normal, no discharge. [] Neck: Normal range of motion, no tenderness, supple, no stridor. [] Cardiovascular:Heart rate regular rhythm, no murmur [] Lungs & Thorax: Bilateral breath sounds clear to auscultation [] Abdomen: Bowel sounds normal, soft, no tenderness, no masses, no pulsatile masses. [] Skin: Warm, dry, no erythema, no rash. [] Back: No tenderness, no CVA tenderness. [] Extremities: No tenderness, no cyanosis, no clubbing, ROM intact, no edema. [] Neurologic: Alert and oriented X 3, normal motor function, normal sensory function, no focal deficits noted. [] Psychologic: Affect normal, judgement normal, mood normal. [] Current Patient Data Vital Signs Vital Signs Date Time Temp Pulse Resp B/P (MAP) Pulse Ox O2 Delivery O2 Flow Rate FiO2 09/08/18 20:58 98.0 86 18 123/81 (95) 98 Room Air 98.0 Lab Values Laboratory Tests Test 09/08/18 20:35 Urine Collection Type Void Urine Color Yellow Urine Clarity Clear Urine pH 6.5 Urine Specific [place] 1.020 Urine Protein Negative mg/dL (NEG-TRACE) Urine Glucose (UA) Negative mg/dL (NEG) Urine Ketones (Stick) Negative mg/dL (NEG) Urine Blood Negative (NEG) Urine Nitrite Negative (NEG) Urine Bilirubin Negative (NEG) Urine Urobilinogen Dipstick 1.0 mg/dL (0.2 mg/dL) Urine Leukocyte Esterase Large (NEG) Urine RBC Occ /HPF (0-2) Urine WBC >40 /HPF (0-4) Urine Squamous Epithelial Cells Many /LPF Urine Bacteria Moderate /HPF (0-FEW) Urine Mucus Marked /LPF EKG EKG [] Radiology/Procedures Radiology/Procedures [] Course & Med Decision Making Course & Med Decision Making Pertinent Labs and Imaging studies reviewed. (See chart for details) [] Dragon Disclaimer Dragon Disclaimer This electronic medical record was generated, in whole or in part, using a voice recognition dictation system. Departure Departure Impression: Primary Impression: Urinary tract infection Disposition: 01 HOME, SELF-CARE Condition: STABLE Referrals: JEANETTE DOAN MD (PCP) Patient Instructions: Urinary Tract Infection, Jsul-je-Oauf Scripts Phenazopyridine Hcl (PYRIDIUM) 200 Mg Tablet 200 MG PO TID for 2 Days, #6 TAB Prov: TOAN SAMPSON DO 09/08/18 Cephalexin (KEFLEX) 500 Mg Capsule 500 MG PO TID for 7 Days, #21 CAP Prov: TOAN SAMPSON DO 09/08/18 Problem Qualifiers Primary Impression: Urinary tract infection Urinary tract infection type: acute cystitis Hematuria presence: without hematuria Qualified Codes: N30.00 - Acute cystitis without hematuria TOAN SAMPSON DO September 08, 2018 21:31
[2018-09-08] MEDS ORDERED: PHENAZOPYRIDINE 200 MG TABLET. ONE (21:34)
[2018-09-08] MEDS ORDERED: cefTRIAXone IV Push 1 GM VIAL. IVP ONE (22:00)
[2018-09-08 22:01] VITALS: BP 112/67
[2018-09-08 22:12] LABS: BASO # 0.1 x10^3/uL (0.0-0.2); BASO % 1 % (0-3); EOS # 0.1 x10^3/uL (0.0-0.7); EOS % 1 % (0-3); HEMATOCRIT 41.6 % (36.0-47.0); HEMOGLOBIN 13.9 g/dL (12.0-15.5); LYMPH # 2.8 x10^3/uL (1.0-4.8); LYMPH % 25 % (24-48); MEAN CORPUSCULAR HEMOGLOBIN 29 pg (25-35); MEAN CORPUSCULAR HGB CONC 33 g/dL (31-37); MEAN CORPUSCULAR VOLUME 87 fL (79-100); MONO # 0.8 x10^3/uL (0.0-1.1); MONO % 7 % (0-9); NEUT # 7.4 x10^3uL (1.8-7.7); NEUT % 66 % (31-73); PLATELET COUNT 330 x10^3/uL (140-400); RED BLOOD COUNT 4.76 x10^6/uL (3.50-5.40); RED CELL DISTRIBUTION WIDTH 14.3 % (11.5-14.5); WHITE BLOOD COUNT 11.2 x10^3/uL (4.0-11.0)
[2018-09-08 22:24] LABS: CALCIUM 9.4 mg/dL (8.5-10.1); CREATININE 0.7 mg/dL (0.6-1.0); GFR 85.4; POTASSIUM 3.9 mmol/L (3.5-5.1)
[2018-09-08 22:31] LABS: ALBUMIN 3.5 g/dL (3.4-5.0); ALBUMIN/GLOBULIN RATIO 0.9 (1.0-1.7); MAGNESIUM 1.9 mg/dL (1.8-2.4); TOTAL BILIRUBIN 0.4 mg/dL (0.2-1.0); TOTAL PROTEIN 7.4 g/dL (6.4-8.2)
== END 2018-09-08 22:05 | disposition home or self-care (01) ==
LOC: ER 20:26
DX: N30.00 Acute cystitis without hematuria (principal); I10 Essential (primary) hypertension; E78.00 Pure hypercholesterolemia, unspecified; E03.9 Hypothyroidism, unspecified; Z90.89 Acquired absence of other organs; Z90.49 Acquired absence of other specified parts of digestive tract
CPT/HCPCS: 36415; 80053; 81001; 83735; 85025; 87086; 96374; 99284; J0696; 87186

== ENCOUNTER → 2018-10-23 | Outpatient (CLI) | payer MEDICAID ==
[~2018-10-23] MED LIST changes: +CEPH-264 PO; +PHEN-318 PO
[2018-10-23 12:05] LABS: BASO % 1 % (0-3); EOS # 0.1 x10^3/uL (0.0-0.7); EOS % 2 % (0-3); HEMATOCRIT 41.4 % (36.0-47.0); HEMOGLOBIN 13.9 g/dL (12.0-15.5); LYMPH # 2.1 x10^3/uL (1.0-4.8); LYMPH % 27 % (24-48); MEAN CORPUSCULAR HEMOGLOBIN 30 pg (25-35); MEAN CORPUSCULAR HGB CONC 34 g/dL (31-37); MEAN CORPUSCULAR VOLUME 88 fL (79-100); MONO # 0.5 x10^3/uL (0.0-1.1); MONO % 6 % (0-9); NEUT % 65 % (31-73); PLATELET COUNT 299 x10^3/uL (140-400); RED BLOOD COUNT 4.69 x10^6/uL (3.50-5.40); RED CELL DISTRIBUTION WIDTH 14.8 % (11.5-14.5); WHITE BLOOD COUNT 7.7 x10^3/uL (4.0-11.0)
[2018-10-26 02:07] LABS: ASPERGILLUS <0.10 kU/L (Class 0); IMMUNOGLUBULIN E 16 IU/mL (6-495)
== END | disposition home or self-care (01) ==
LOC: LAB 10:59
PROVIDERS: ATTEND Internal Medicine Pulmonary Disease
DX: R06.02 Shortness of breath (principal)
CPT/HCPCS: 36415; 82784; 85025; 86001

== ENCOUNTER 2019-10-15 14:42 | Emergency (ER) | payer MEDICARE, MEDICAID ==
[~2019-10-15] VITALS: Ht 170.2 cm; Wt 109.3 kg
[~2019-10-15 14:42] MED LIST changes: +LISI1TAB20 PO; -LISI1TAB7 PO; +METF-658 PO; -METF500T9 PO; +SIMV20TA18 PO; -SIMV20TA3 PO
[2019-10-15] MEDS ORDERED: KETOROLAC 60 MG/2 ML VIAL. IM ONE (17:00)
--- NOTE | 2019-10-15 18:05 | RAD ---
Three-view acute abdominal series. HISTORY: Abdominal pain, history of diverticulitis 3 views were taken for an acute abdominal series. Lungs are clear. Heart is normal in size. There is no effusion. Patient's had a cholecystectomy. Bowel pattern is normal. There is moderate stool in the colon. There are bilateral renal calculi. There are multiple phleboliths in the pelvis. There are hypertrophic and degenerative changes in the lumbar spine. There is no free air on the upright view of the abdomen or abnormal air-fluid levels. IMPRESSION: 1. Bilateral renal calculi unchanged from old CT study. 2. Moderate stool in the colon. 3. No small bowel obstruction or other acute finding. Electronically signed by: Abilio Cline MD (10/15/2019 6:03 PM) [facility]
--- NOTE | 2019-10-15 18:11 | RAD ---
Lumbar spine 5 views. HISTORY: Low back pain radiating down left lower extremity 3 views were taken of the lumbar spine. There is slight scoliosis convex to the left. There is lower lumbar facet arthritis. There is not evidence of spondylolysis. There is no abnormal subluxation. There is degenerative disc disease most prominent at L5-S1. There is hypertrophic spurring. IMPRESSION: 1. Mild scoliosis. 2. Degenerative changes in the lumbar spine. Electronically signed by: Abilio Cline MD (10/15/2019 6:08 PM) [facility]
[2019-10-15] MEDS ORDERED: MAGN296S68 PO (19:07)
[2019-10-15] MEDS ORDERED: HYDR-3164 PO (19:07)
[2019-10-15] MEDS ORDERED: CYCL10TA2 PO (19:07)
--- NOTE | 2019-10-15 19:07 | PHYS DOC ---
Past Medical History Past Medical History: High Cholesterol, Hypertension, Hypothyroid Additional Past Medical Histor: gallstones Past Surgical History: Appendectomy, Cholecystectomy, Knee Replacement Additional Past Surgical Histo: D&C's Smoking Status: Never Smoker Alcohol Use: None Drug Use: None General Adult EDM: Chief Complaint: HIP PAIN HPI: HPI: Patient is a 59 year old female who presents with what she describes as a left- sided sciatica pain for the past 2 days that she rates at a 5/10. Patient states it is unusual for her sciatica to be on her left side and it is usually on her right side. Patient denies any recent injury or straining her back that is related to this current complaint of pain. Patient also states that she has been constipated lately and took a laxative because her last BM was 3 or 4 days ago. Patient denies fever, chills, vision changes, nasal congestion, sore t hroat, cough or shortness of breath, chest pains or peripheral swelling. Patient denies any current abdominal pain, nausea, vomiting, diarrhea, or blood in her stools. Patient denies any bladder problems or problems urinating. Patient denies any pains in her joints. Patient does states she has DJD of her back and was supposed to see a hospital cleaning specialist to have cortisone inj ections into her back. Patient states because of the recent coronavirus the office has been unable to schedule her as of the last 2 months. Patient states she has not reached out to them lately for a re-appointment. Patient denies any skin rashes, headaches, focal weaknesses, or sensory changes. Patient denies any loss of bowel or bladder since her back pain started. Patient denies any changes in drinking habits or any changes with urinary frequency. Patient denies any swelling of her glands. Patient denies any recent depression or anxieties. Patient denies anybody in her home with the same symptoms. Review of Systems: Review of Systems: Constitutional: Denies fever or chills. Eyes: Denies change in visual acuity. HENT: Denies nasal congestion or sore throat. Respiratory: Denies cough or shortness of breath. Cardiovascular: Denies chest pain or edema. GI: Denies abdominal pain, nausea, vomiting, bloody stools or diarrhea. : Denies dysuria. Musculoskeletal: Complains of low left-sided lumbar region pain that radiates down her buttocks and to her anterior thigh. Patient rates this pain at a 5/10. Integument: Denies rash. Neurologic: Denies headache, focal weakness or sensory changes. Endocrine: Denies polyuria or polydipsia. Lymphatic: Denies swollen glands. Psychiatric: Denies depression or anxiety. Heart Score: Risk Factors: Risk Factors: DM, Current or recent (<one month) smoker, HTN, HLP, family history of CAD, obesity. Risk Scores: Score 0 - 3: 2.5% MACE over next 6 weeks - Discharge Home Score 4 - 6: 20.3% MACE over next 6 weeks - Admit for Clinical Observation Score 7 - 10: 72.7% MACE over next 6 weeks - Early Invasive Strategies Current Medications: Patient reports taking levothyroxine 25 mcg p.o. daily, metformin 500 mg ER tablet daily with the evening meal, lisinopril/HCTZ 2525 p.o. daily for hypertension. BuSpar 10 mg tablet twice a day for anxiety. And simvastatin 20 mg tablet daily at bedtime. Current Medications Medications (Trade) Dose Ordered Sig/Vale Start Time Stop Time Status Last Admin Dose Admin Ketorolac Tromethamine (Toradol Im) 60 mg 1X ONCE 10/15/19 17:00 10/15/19 17:01 DC 10/15/19 18:06 60 MG Allergies: Allergies: Allergies Coded Allergies Type Severity Reaction Last Updated Verified No Known Drug Allergies 06/01/17 No Physical Exam: PE: Constitutional: Well developed, well nourished, no acute distress, non-toxic appearance. HENT: Normocephalic, atraumatic, bilateral external ears normal, oropharynx moist, no oral exudates, nose normal. Eyes: PERRLA, EOMI, conjunctiva normal, no discharge. Pupils 4 mm bilaterally. Neck: Normal range of motion, no tenderness, supple, no stridor. Cardiovascular:Heart rate regular rhythm, no murmur heart sounds S1-S2, no abnormalities noted per auscultation. Lungs & Thorax: Bilateral breath sounds clear to auscultation all lung hinojosa. Abdomen: Bowel sounds normal all 4 quadrants, soft, no tenderness, no masses, no pulsatile masses. Skin: Warm, dry, no erythema, no rash. Back: Tenderness to the lumbar region just left of the lumbar spine, no CVA tenderness. Extremities: Tenderness down left buttocks and around to left anterior thigh to palpation, no cyanosis, no clubbing, ROM intact, no edema. Neurologic: Alert and oriented X 3, normal motor function, normal sensory function, no focal deficits noted. Normal ambulation in room with steady gait. Psychologic: Affect normal, judgement normal, mood normal. Normal affect. Current Patient Data: Vital Signs: Vital Signs Date Time Temp Pulse Resp B/P (MAP) Pulse Ox O2 Delivery O2 Flow Rate FiO2 10/15/19 16:17 98.7 88 14 96 Room Air 98.7 EKG: EKG: [] Radiology/Procedures: Radiology/Procedures: PROCEDURE: ACUTE ABDOMEN SERIES Three-view acute abdominal series. HISTORY: Abdominal pain, history of diverticulitis 3 views were taken for an acute abdominal series. Lungs are clear. Heart is normal in size. There is no effusion. Patient's had a cholecystectomy. Bowel pattern is normal. There is moderate stool in the colon. There are bilateral renal calculi. There are multiple phleboliths in the pelvis. There are hypertrophic and degenerative changes in the lumbar spine. There is no free air on the upright view of the abdomen or abnormal air-fluid levels. IMPRESSION: 1. Bilateral renal calculi unchanged from old CT study. 2. Moderate stool in the colon. 3. No small bowel obstruction or other acute finding. Electronically signed by: Abilio Solorzano MD (10/15/2019 6:03 PM) [facility] DICTATED and SIGNED BY: ABILIO SOLORZANO MD DATE: 10/15/191802 PROCEDURE: LUMBAR SPINE MIN 4V Lumbar spine 5 views. HISTORY: Low back pain radiating down left lower extremity 3 views were taken of the lumbar spine. There is slight scoliosis convex to the left. There is lower lumbar facet arthritis. There is not evidence of spondylolysis. There is no abnormal subluxation. There is degenerative disc disease most prominent at L5-S1. There is hypertrophic spurring. IMPRESSION: 1. Mild scoliosis. 2. Degenerative changes in the lumbar spine. Electronically signed by: Abilio Solorzano MD (10/15/2019 6:08 PM) [facility] DICTATED and SIGNED BY: ABILIO SOLORZANO MD DATE: 10/15/191807 Course & Med Decision Making: Course & Med Decision Making Pertinent Labs and Imaging studies reviewed. (See chart for details) 59-year-old female patient presents emergency department with complaints of sciatica pain that radiates down her left buttocks and around to her left anterior thigh. Patient states she has a history of degenerative joint disease and was supposed to follow-up with a hospital cleaning specialist to have cortisone injections into her back. Patient states because of the coronavirus she was unable to get these appointments made. Patient states she has not reached out to her hospital cleaning specialist in the past month, but plans to do so. Patient st ates that she usually has sciatica down the right side of her back and found it unusual that it was down the left side this time. Because of this imaging was ordered. Patient also complained of constipation that was not relieved by taking a laxative this morning. Patient states she does have off-and-on periods of constipation and it is not unusual for her to need a laxative a few times throughout the year. X-rays were ordered of her lumbar spine and an acute abdomen. Per radiologist report findings were congruent with her degenerative joint disease of her spine and also showed constipation throughout her bowel. Patient was given Toradol IM for pain which brought her pain from a 5/10 down to a 1/10 scale. Radiology findings were reviewed with patient. A plan was made to discharge patient home with a prescription for mag citrate as a laxative, a muscle relaxer, and pain medication. Patient was agreeable to this discharge plan. Patient gave verbal understanding of discharge home care instructions and use of laxative and other prescribed medications. Patient states she will follow-up with her hospital cleaning specialist soon. Patient discharged to home self- care and denies further questions. Nathaniel Disclaimer: Nathaniel Disclaimer: This electronic medical record was generated, in whole or in part, using a voice recognition dictation system. Departure Departure Impression: Primary Impression: Low back pain Qualified Codes: M54.42 - Lumbago with sciatica, left side; G89.29 - Other chronic pain Additional Impressions: Sciatic nerve pain Qualified Codes: M54.32 - Sciatica, left side Constipation Qualified Codes: K59.00 - Constipation, unspecified DJD (degenerative joint disease), lumbar Qualified Codes: M47.816 - Spondylosis without myelopathy or radiculopathy, lumbar region Disposition: 01 HOME, SELF-CARE Condition: GOOD Referrals: UNKNOWN PCP NAME (PCP) Patient Instructions: Back Pain in , Constipation, Adult, Sciatica Additional Instructions: Please take prescribed medications as directed. Call your doctor if constipation does not resolve within the next 24 hours. Make an appointment with your hospital cleaning specialist to resume with treatment of your chronic spine pain problems. Please return to the emergency department for any further injuries or concerns. Scripts Hydrocodone/Apap 5-325 (NORCO 5-325 TABLET) 1 Each Tablet 1 TAB PO PRN Q6HRS PRN for PAIN, #10 TAB 0 Refills Prov: TOAN MCPHERSON APRN 10/15/19 Magnesium Citrate (MAGNESIUM CITRATE) 296 Ml Solution 296 ML PO ONCE for constipation, #296 ML 0 Refills Prov: TOAN MCPHERSON APRN 10/15/19 Cyclobenzaprine Hcl (CYCLOBENZAPRINE HCL) 10 Mg Tablet 10 MG PO TID, #15 TAB 0 Refills Prov: TOAN MCPHERSON APRN 10/15/19 Justicifation of Admission Dx: Justifications for Admission: Justification of Admission Dx: N/A TOAN MCPHERSON APRN Oct 15, 2019 19:07
== END 2019-10-15 19:20 | disposition home or self-care (01) ==
LOC: ER 14:42
DX: M47.816 Spondylosis without myelopathy or radiculopathy, lumbar region (principal); M54.42 Lumbago with sciatica, left side; G89.29 Other chronic pain; K59.00 Constipation, unspecified; E78.00 Pure hypercholesterolemia, unspecified; I10 Essential (primary) hypertension; E03.9 Hypothyroidism, unspecified; Z90.49 Acquired absence of other specified parts of digestive tract; Z90.89 Acquired absence of other organs
CPT/HCPCS: 72110; 74022; 96372; 99284; J1885

== ENCOUNTER 2020-04-04 14:32 | Emergency (ER) | payer MEDICARE, MEDICAID ==
[~2020-04-04] VITALS: Ht 170.2 cm; Wt 106.8 kg
[~2020-04-04 14:32] MED LIST changes: +HYDR-3164 PO; +MAGN296S68 PO
[2020-04-04 15:04] VITALS: BP 141/74
[2020-04-04] MEDS ORDERED: ACETAMINOPHEN 500 MG TABLET PO ONE (15:15)
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
[2020-04-04 16:21] LABS: BILIRUBIN,URINE NEGATIVE (NEG); CLARITY,URINE CLEAR; COLOR,URINE YELLOW; NITRITE,URINE NEGATIVE (NEG); PROTEIN,URINE NEGATIVE (NEG-TRACE); UROBILINOGEN,URINE 0.2 mg/dL (0.2 mg/dL)
[2020-04-04 16:43] LABS: BACTERIA,URINE FEW /HPF (0-FEW); RBC,URINE 0 /HPF (0-2)
== END 2020-04-04 16:20 | disposition home or self-care (01) ==
LOC: ER 14:32
DX: S20.212A Contusion of left front wall of thorax, initial encounter (principal); S00.83XA Contusion of other part of head, initial encounter; S00.03XA Contusion of scalp, initial encounter; E11.9 Type 2 diabetes mellitus without complications; I10 Essential (primary) hypertension; J45.909 Unspecified asthma, uncomplicated; E78.00 Pure hypercholesterolemia, unspecified; E03.9 Hypothyroidism, unspecified; Y04.0XXA Assault by unarmed brawl or fight, initial encounter; Y93.89 Activity, other specified; Y92.89 Other specified places as the place of occurrence of the external cause; Y99.8 Other external cause status
CPT/HCPCS: 70450; 70486; 71046; 81001; 87086; 99285-25

== ENCOUNTER 2021-05-02 13:54 | Emergency (ER) | payer OTHER, MEDICAID ==
[~2021-05-02] VITALS: Ht 170.2 cm; Wt 113.0 kg
[~2021-05-02 13:54] MED LIST changes: +CYCL10TA19 PO; -CYCL10TA2 PO; -LISI-334 PO; -LISI1TAB20 PO; +LISI1TAB39 PO; +LISI20TA18 PO
[2021-05-02 14:08] LABS: BILIRUBIN,URINE NEGATIVE (NEG); CLARITY,URINE CLEAR; COLOR,URINE YELLOW; NITRITE,URINE NEGATIVE (NEG); PROTEIN,URINE NEGATIVE (NEG-TRACE); UROBILINOGEN,URINE 0.2 mg/dL (0.2 mg/dL)
[2021-05-02 14:29] LABS: HYALINE CASTS, URINE FEW /HPF; WBC,URINE 20-40 /HPF (0-4)
[2021-05-02 14:30] LABS: BACTERIA,URINE FEW /HPF (0-FEW); RBC,URINE OCC /HPF (0-2)
[2021-05-02 15:23] VITALS: BP 131/88
--- NOTE | 2021-05-02 15:25 | PHYS DOC ---
Past Medical History Past Medical History: Asthma, Diabetes-Type II, High Cholesterol, Hypertension, Hypothyroid, UTI Additional Past Medical Histor: gallstones Past Surgical History: Appendectomy, Cholecystectomy, Knee Replacement Additional Past Surgical Histo: D&C's Smoking Status: Never Smoker Alcohol Use: None Drug Use: None Adult General Chief Complaint Chief Complaint: PAIN ON URINATION [facility] Patient is a 61 year old female who presents with UTI symptoms. Patient states she has been having dysuria and symptoms typical for her urinary tract infections over the last week. She has history of the same. She has been treated multiple times over the last several months. Has seen her primary care doctor. She was last treated with Levaquin which she states did not help. Today, she is requesting Bactrim which has helped in the past. No fever. No flank pain. No nausea or vomiting. No other complaints today. Review of Systems Review of Systems Constitutional: Denies fever or chills Eyes: Denies change in visual acuity HENT: Denies nasal congestion or sore throat Respiratory: Denies cough or shortness of breath GI: Denies abdominal pain, nausea : As documented in HPI Musculoskeletal: Denies back pain or joint pain Integument: Denies rash Neurologic: Denies headache All other systems were reviewed and found to be within normal limits, except as documented in this note. Allergies Allergies Allergies Coded Allergies Type Severity Reaction Last Updated Verified No Known Drug Allergies 06/01/17 No Physical Exam Physical Exam Constitutional: Well developed, well nourished, no acute distress, non-toxic appearance HENT: Normocephalic, atraumatic, bilateral external ears normal, oropharynx moist Eyes: PERRLA, EOMI Neck: Normal range of motion, no tenderness Cardiovascular:Heart rate regular rhythm, no murmur Lungs & Thorax: Bilateral breath sounds clear to auscultation Skin: Warm, dry, no erythema, no rash Extremities: Normal ROM Neurologic: Alert and oriented X 3, normal motor function Psychologic: Affect normal Current Patient Data Lab Values Laboratory Tests Test 05/02/21 13:56 Urine Collection Type Void Urine Color Yellow Urine Clarity Clear Urine pH 6.0 (<5.0-8.0) Urine Specific [place] 1.010 (1.000-1.030) Urine Protein Negative mg/dL (NEG-TRACE) Urine Glucose (UA) Negative mg/dL (NEG) Urine Ketones (Stick) Negative mg/dL (NEG) Urine Blood Negative (NEG) Urine Nitrite Negative (NEG) Urine Bilirubin Negative (NEG) Urine Urobilinogen Dipstick 0.2 mg/dL (0.2 mg/dL) Urine Leukocyte Esterase Moderate (NEG) Urine RBC Occ /HPF (0-2) Urine WBC 20-40 /HPF (0-4) Urine Squamous Epithelial Cells Many /LPF Urine Bacteria Few /HPF (0-FEW) Urine Hyaline Casts Few /HPF Urine Mucus Slight /LPF EKG EKG [] Radiology/Procedures Radiology/Procedures [] Course & Med Decision Making Course & Med Decision Making Pertinent Labs and Imaging studies reviewed. (See chart for details) ED summary: Patient seen in the emergency department today as documented in HPI. Overall is nontoxic-appearing. She is requesting medication for treatment of UTI which is chronic and recurring. No fever. No flank pain. Vital signs stable. In the ER, her physical examination is normal otherwise. She is given prescription for Bactrim and Pyridium. Recommended that she follow-up with her primary care doctor. Urine culture added to her work-up Dragon Disclaimer Nathaniel Disclaimer This electronic medical record was generated, in whole or in part, using a voice recognition dictation system. Departure Departure Impression: Primary Impression: UTI (urinary tract infection) Disposition: HOME / SELF CARE / HOMELESS Condition: GOOD Referrals: ANGEL LY APRN (PCP) Patient Instructions: Urinary Tract Infection Scripts Phenazopyridine Hcl (PYRIDIUM) 100 Mg Tablet 1 TAB PO TID for urinary discomfort for 2 Days, #6 TAB 0 Refills Prov: ARTHUR MAN DO 05/02/21 Sulfamethoxazole/Trimethoprim (BACTRIM DS TABLET) 1 Each Tablet 1 TAB PO BID for 7 Days, #14 TAB 0 Refills Prov: ARTHUR MAN DO 05/02/21 ARTHUR MAN DO May 02, 2021 15:25
[2021-05-02] MEDS ORDERED: PHEN100T82 PO (15:32)
[2021-05-02] MEDS ORDERED: SULF1TAB24 PO (15:32)
== END 2021-05-02 15:45 | disposition home or self-care (01) ==
LOC: ER 13:54
DX: N39.0 Urinary tract infection, site not specified (principal); J45.909 Unspecified asthma, uncomplicated; E11.9 Type 2 diabetes mellitus without complications; E78.00 Pure hypercholesterolemia, unspecified; I10 Essential (primary) hypertension; E03.9 Hypothyroidism, unspecified; Z87.440 Personal history of urinary (tract) infections; Z90.89 Acquired absence of other organs; Z90.49 Acquired absence of other specified parts of digestive tract
CPT/HCPCS: 81001; 99283

== ENCOUNTER 2021-06-30 18:33 | Emergency (ER) | payer OTHER, MEDICAID ==
[~2021-06-30] VITALS: Ht 170.2 cm; Wt 109.0 kg
[~2021-06-30 18:33] MED LIST changes: +PHEN100T82 PO; +SULF1TAB24 PO
[2021-06-30] MEDS ORDERED: IV NORMAL SALINE 1000ML BAG 1,000 ML IV ONE (19:00)
[2021-06-30 19:29] LABS: BASO % 0 % (0-3); EOS # 0.2 x10^3/uL (0.0-0.7); EOS % 2 % (0-3); HEMATOCRIT 42.2 % (36.0-47.0); HEMOGLOBIN 13.8 g/dL (12.0-15.5); LYMPH # 2.5 x10^3/uL (1.0-4.8); LYMPH % 26 % (24-48); MEAN CORPUSCULAR HEMOGLOBIN 29 pg (25-35); MEAN CORPUSCULAR HGB CONC 33 g/dL (31-37); MEAN CORPUSCULAR VOLUME 88 fL (79-100); MONO # 0.6 x10^3/uL (0.0-1.1); MONO % 6 % (0-9); NEUT # 6.4 x10^3/uL (1.8-7.7); NEUT % 66 % (31-73); PLATELET COUNT 325 x10^3/uL (140-400); RED BLOOD COUNT 4.79 x10^6/uL (3.50-5.40); RED CELL DISTRIBUTION WIDTH 14.8 % (11.5-14.5); WHITE BLOOD COUNT 9.6 x10^3/uL (4.0-11.0)
[2021-06-30] MEDS ORDERED: MORPHINE SULFATE 10 MG/ML VIAL. IVP ONE (19:30)
[2021-06-30 19:36] LABS: CALCIUM 9.3 mg/dL (8.5-10.1); CREATININE 0.8 mg/dL (0.6-1.0); GFR 72.4; POTASSIUM 3.9 mmol/L (3.5-5.1)
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
[2021-06-30 19:42] LABS: ALBUMIN 3.5 g/dL (3.4-5.0); ALBUMIN/GLOBULIN RATIO 0.7 (1.0-1.7); TOTAL BILIRUBIN 0.5 mg/dL (0.2-1.0); TOTAL PROTEIN 8.2 g/dL (6.4-8.2)
[2021-06-30] MEDS ORDERED: KETOROLAC 15 MG/ML VIAL. IVP ONE (20:15)
--- NOTE | 2021-06-30 20:15 | PHYS DOC ---
Past Medical History Past Medical History: Asthma, Diabetes-Type II, High Cholesterol, Hypertension, Hypothyroid, UTI Additional Past Medical Histor: gallstones (RAH CARRION CERTIFED REFRIGERATION OPERATOR) Past Surgical History: No Surgical History Additional Past Surgical Histo: D&C's (RAH CARRION ) Smoking Status: Never Smoker Alcohol Use: None Drug Use: None (RAH CARRION CERTIFED REFRIGERATION OPERATOR) General Adult EDM: Chief Complaint: FLANK PAIN HPI: HPI: Patient is a 61 year old female with a history of hypertension, diabetes type 2, frequent UTIs, who presents to the ED today complaining of mild intermittent left flank pain, dysuria and chills with bilateral lower extremity pain, symptoms have been going on since Tuesday. Patient states she was seen by the PCP on Tuesday, was diagnosed with UTI and started on Bactrim which she states she already completed. She states she was sent to the ED today because her symptoms are still going on. She states she feels the infection is gone to her kidneys. Patient denies any fever, nausea, vomiting. (RAH CARRION ) Review of Systems: Review of Systems: Constitutional: Reports chills, denies fever Eyes: Denies change in visual acuity. [] HENT: Denies nasal congestion or sore throat. [] Respiratory: Denies cough or shortness of breath. [] Cardiovascular: Denies chest pain or edema. [] GI: Denies abdominal pain, nausea, vomiting, bloody stools or diarrhea. [] : Reports dysuria and flank pain to the left Musculoskeletal: Reports pain to bilateral lower extremities, denies back pain Integument: Denies rash. [] Neurologic: Denies headache, focal weakness or sensory changes. [] Psychiatric: Denies depression or anxiety. [] (RAH CARRION CERTIFED REFRIGERATION OPERATOR) Heart Score: C/O Chest Pain: N/A Risk Factors: Risk Factors: DM, Current or recent (<one month) smoker, HTN, HLP, family history of CAD, obesity. Risk Scores: Score 0 - 3: 2.5% MACE over next 6 weeks - Discharge Home Score 4 - 6: 20.3% MACE over next 6 weeks - Admit for Clinical Observation Score 7 - 10: 72.7% MACE over next 6 weeks - Early Invasive Strategies (RAH CARRION CERTIFED REFRIGERATION OPERATOR) Current Medications: Current Medications Medications (Trade) Dose Ordered Sig/Vale Start Time Stop Time Status Last Admin Dose Admin Ketorolac Tromethamine (Toradol 15mg Vial) 15 mg 1X ONCE 06/30/21 20:15 06/30/21 20:16 UNV Morphine Sulfate (Morphine Sulfate) 5 mg 1X ONCE 06/30/21 19:30 06/30/21 19:31 Cancel Sodium Chloride 1,000 ml @ 1,000 mls/hr 1X ONCE 06/30/21 19:00 06/30/21 19:59 DC 06/30/21 19:13 1,000 MLS/HR (RAH CARRION Livia CERTIFED REFRIGERATION OPERATOR) Allergies: Allergies: Allergies Coded Allergies Type Severity Reaction Last Updated Verified No Known Drug Allergies 06/30/21 No (RAH CARRION CERTIFED REFRIGERATION OPERATOR) Physical Exam: PE: Constitutional: Well developed, well nourished, no acute distress, non-toxic appearance. [] HENT: Normocephalic, atraumatic, bilateral external ears normal, oropharynx moist, no oral exudates, nose normal. [] Eyes: PERRLA, EOMI, conjunctiva normal, no discharge. [] Neck: Normal range of motion, no tenderness, supple, no stridor. [] Cardiovascular:Heart rate regular rhythm, no murmur [] Lungs & Thorax: Bilateral breath sounds clear to auscultation [] Abdomen: Bowel sounds normal, soft, no tenderness, no masses, no pulsatile masses. [] Skin: Warm, dry, no erythema, no rash. [] Back: No tenderness, mild left CVA tenderness. [] Extremities: No tenderness, no cyanosis, no clubbing, ROM intact, no edema. [] Neurologic: Alert and oriented X 3, normal motor function, normal sensory fu nction, no focal deficits noted. Negative Homans' sign bilaterally Psychologic: Affect normal, judgement normal, mood normal. [] (RAH CARRION CERTIFED REFRIGERATION OPERATOR) Current Patient Data: Labs: Laboratory Tests Test 06/30/21 19:10 White Blood Count 9.6 x10^3/uL (4.0-11.0) Red Blood Count 4.79 x10^6/uL (3.50-5.40) Hemoglobin 13.8 g/dL (12.0-15.5) Hematocrit 42.2 % (36.0-47.0) Mean Corpuscular Volume 88 fL (79-100) Mean Corpuscular Hemoglobin 29 pg (25-35) Mean Corpuscular Hemoglobin Concent 33 g/dL (31-37) Red Cell Distribution Width 14.8 % (11.5-14.5) H Platelet Count 325 x10^3/uL (140-400) Neutrophils (%) (Auto) 66 % (31-73) Lymphocytes (%) (Auto) 26 % (24-48) Monocytes (%) (Auto) 6 % (0-9) Eosinophils (%) (Auto) 2 % (0-3) Basophils (%) (Auto) 0 % (0-3) Neutrophils # (Auto) 6.4 x10^3/uL (1.8-7.7) Lymphocytes # (Auto) 2.5 x10^3/uL (1.0-4.8) Monocytes # (Auto) 0.6 x10^3/uL (0.0-1.1) Eosinophils # (Auto) 0.2 x10^3/uL (0.0-0.7) Basophils # (Auto) 0.0 x10^3/uL (0.0-0.2) Sodium Level 140 mmol/L (136-145) Potassium Level 3.9 mmol/L (3.5-5.1) Chloride Level 103 mmol/L (98-107) Carbon Dioxide Level 30 mmol/L (21-32) Anion Gap 7 (6-14) Blood Urea Nitrogen 9 mg/dL (7-20) Creatinine 0.8 mg/dL (0.6-1.0) Estimated GFR (Cockcroft-Gault) 72.4 BUN/Creatinine Ratio 11 (6-20) Glucose Level 160 mg/dL (70-99) H Calcium Level 9.3 mg/dL (8.5-10.1) Total Bilirubin 0.5 mg/dL (0.2-1.0) Aspartate Amino Transferase (AST) 60 U/L (15-37) H Alanine Aminotransferase (ALT) 80 U/L (14-59) H Alkaline Phosphatase 130 U/L (46-116) H Total Protein 8.2 g/dL (6.4-8.2) Albumin 3.5 g/dL (3.4-5.0) Albumin/Globulin Ratio 0.7 (1.0-1.7) L Laboratory Tests 06/30/21 19:10 Laboratory Tests 06/30/21 19:10 Vital Signs: Vital Signs Date Time Temp Pulse Resp B/P (MAP) Pulse Ox O2 Delivery O2 Flow Rate FiO2 06/30/21 18:41 98.8 93 16 164/87 (112) 96 98.8 (RAH CARRION APRN) EKG: EKG: [] (RAH CARRION APRN) Radiology/Procedures: Radiology/Procedures: []PROCEDURE: CT ABDOMEN PELVIS WO CONTRAST Abdominal and Pelvis CT, Without Contrast: History: Reason: flank pain hx of UTI, kidney infections / Spl. Instructions: / History: Comparison: July 01, 2017. Procedure: Axial images are obtained of the abdomen and pelvis, without IV or oral contrast. Oral Contrast: No Findings: Evaluation of solid organs is limited without contrast. Liver: Normal. Spleen: Normal. Pancreas: Normal. Adrenal Glands: Normal. Kidneys: There are small cortical calcifications however there is no urolithiasis or obstructive uropathy. There is no free air or free fluid. There is no lymphadenopathy. The urinary bladder appears normal. There is no pericolonic inflammation identified. The appendix is not well seen. There is a 1.8 cm cyst in the left ovary. The gallbladder has been removed. Impression: No acute findings. End impression PQRS Compliance Statement: One or more of the following individualized dose reduction techniques were utilized for this examination: 1. Automated exposure control 2. Adjustment of the mA and/or kV according to patient size 3. Use of iterative reconstruction technique Electronically signed by: Mariella Noavk III, MD (06/30/2021 7:38 PM) [facility] DICTATED and SIGNED BY: MARIELLA NOVAK III, MD DATE: 06/30/211931 (RAH CARRION APRN) Course & Med Decision Making: Course & Med Decision Making Pertinent Labs and Imaging studies reviewed. (See chart for details) This a 61-year-old female patient presenting to the ED today complaining of left flank pain, dysuria, chills and bilateral lower extremity pain, symptoms have been going on since Tuesday. History of frequent UTIs. Concerned she is having a kidney infection. Patient is afebrile, CBC with no acute findings, CMP with glucose of 160-patient is diabetic, no anion gap. AST of 60, ALT of 80, ALK of 130. CT of the abdomen and pelvis is negative for any acute findings, UA is orange in color unreadable. D/c to home. F/u with PCP in one week (RAH CARRION APRN) Course & Med Decision Making Patients Care and treatment plan provided by ER Nurse Practitioner. I was available for consult. Patient's chart reviewed. (YUE YA DO) Dragon Disclaimer: Draglynda Disclaimer: This electronic medical record was generated, in whole or in part, using a voice recognition dictation system. (RAH CARRION APRN) Departure Departure Impression: Primary Impression: Left flank pain Disposition: HOME / SELF CARE / HOMELESS Condition: STABLE Referrals: CHRISTOPHER BRADSHAW MD (PCP) follow up in the course of this week or next week Patient Instructions: Flank Pain, [id number] Additional Instructions: You were seen in the ED. Your urine is orange and not readable. Your labs are negative for any acute findings. Your CT of the abdomen and pelvis is negative for any acute findings. Please follow up with your doctor next week. RAH CARRION APRN Jun 30, 2021 20:14 YUE YA DO Jul 02, 2021 03:50
[2021-06-30 20:35] LABS: BACTERIA,URINE 0 /HPF (0-FEW); RBC,URINE 0 /HPF (0-2)
[2021-06-30 21:49] VITALS: BP 166/67
== END 2021-06-30 21:49 | disposition home or self-care (01) ==
LOC: ER 18:33
DX: R10.9 Unspecified abdominal pain (principal); R30.0 Dysuria; M79.604 Pain in right leg; M79.605 Pain in left leg; I10 Essential (primary) hypertension; E11.9 Type 2 diabetes mellitus without complications; E78.00 Pure hypercholesterolemia, unspecified; J45.909 Unspecified asthma, uncomplicated; E03.9 Hypothyroidism, unspecified; Z87.440 Personal history of urinary (tract) infections
CPT/HCPCS: 36415; 74176; 80053; 81001; 85025; 96361; 96374; 99284; J1885; J7030